=== PATIENT | male | born 1955 | race Caucasian/White ===

== ENCOUNTER 2017-03-31 08:30 | Outpatient (CLI) | payer MEDICARE ==
[2017-03-31] MEDS ORDERED: Iopamidol 370 76% 100 ML VIAL ONE (13:40)
== END 2017-03-31 08:31 | disposition home or self-care (01) ==
LOC: BICCT 08:30
PROVIDERS: ATTEND Internal Medicine Hematology & Oncology
DX: C64.2 Malignant neoplasm of left kidney, except renal pelvis (principal); C79.51 Secondary malignant neoplasm of bone; D75.1 Secondary polycythemia
CPT/HCPCS: 36415; 74177; 80053; 82248; 83615; 84100; 84550

== ENCOUNTER 2017-09-22 13:14 | Day surgery (SDC) | payer MEDICARE ==
[2017-09-22] MEDS ORDERED: Sodium Chloride 0.9% 10 ML ONE ×2 (13:31→13:32)
[2017-09-22] MEDS ORDERED: Zoledronic Acid 4 MG in Sodium Chloride 0.9% 100 ML IVPB SCH (14:00)
[2017-09-22 14:03] VITALS: BP 129/77; TEMP 99
== END 2017-09-22 14:58 | disposition home or self-care (01) ==
LOC: ONC/OP 13:14
PROVIDERS: ATTEND Internal Medicine Hematology & Oncology
DX: Z51.11 Encounter for antineoplastic chemotherapy (principal); C64.2 Malignant neoplasm of left kidney, except renal pelvis; C79.51 Secondary malignant neoplasm of bone; D75.1 Secondary polycythemia; E11.9 Type 2 diabetes mellitus without complications; Z79.899 Other long term (current) drug therapy
CPT/HCPCS: 80053; 96365; A4216; J3489; J7050

== ENCOUNTER 2017-10-17 08:05 | Outpatient (CLI) | payer MEDICARE ==
[2017-10-17] MEDS ORDERED: ISOVUE-370 76%-LOCM 1 ML ONE (13:30)
== END 2017-10-17 08:06 | disposition home or self-care (01) ==
LOC: BICCT 08:05
PROVIDERS: ATTEND Internal Medicine Hematology & Oncology
DX: C64.2 Malignant neoplasm of left kidney, except renal pelvis (principal); C79.51 Secondary malignant neoplasm of bone; Z90.5 Acquired absence of kidney
CPT/HCPCS: 71260; 74177

== ENCOUNTER → 2017-12-15 | Day surgery (SDC) | payer MEDICARE, OTHER ==
[~2017-12-15] MED LIST: Sodium Chloride 0.9% 20 ML ONE; Zoledronic Acid 4 MG in Sodium Chloride 0.9% 100 ML IVPB SCH
[2017-12-15 14:04] VITALS: BP 133/70; TEMP 98.4
== END ==
LOC: ONC/OP 13:12
PROVIDERS: ATTEND Internal Medicine Hematology & Oncology
DX: Z51.11 Encounter for antineoplastic chemotherapy (principal); C64.2 Malignant neoplasm of left kidney, except renal pelvis; C79.51 Secondary malignant neoplasm of bone; D75.1 Secondary polycythemia; F17.210 Nicotine dependence, cigarettes, uncomplicated; M19.90 Unspecified osteoarthritis, unspecified site; E11.9 Type 2 diabetes mellitus without complications; I10 Essential (primary) hypertension; Z79.891 Long term (current) use of opiate analgesic; Z79.899 Other long term (current) drug therapy; Z90.5 Acquired absence of kidney
CPT/HCPCS: 36415; 82565; 96365; J3489; J7050

== ENCOUNTER 2018-01-28 13:21 | Outpatient (CLI) | payer MEDICARE, OTHER ==
--- NOTE | 2018-01-28 19:55 | CT ---
CT OF CHEST AND ABDOMEN AND PELVIS PERFORMED WITH INTRAVENOUS CONTRAST ENHANCEMENT: 01/28/18 HISTORY: Left nephrectomy for renal cell carcinoma. Secondary malignant neoplasm of bone. COMPARISON: An 10/17/17 examination. The lungs show emphysematous change. There are no pulmonary nodules identified and no evidence of ple ural effusions. No infiltrates. There is no significant mediastinal or hilar lymphadenopathy. Minimal coronary artery calcifications are seen. Old right sided rib fractures are present. CT OF ABDOMEN PERFORMED WITH CONTRAST ENHANCEMENT: The liver and spleen appear unremarkable. The subtle hypodensity seen along the caudal surface of the pancreatic tail measuring approximately 9 x 34 mm in size is stable and is probably postoperative in nature. I do not believe it is truly of pancreatic origin. The gallbladder region appears unremarkab le. Right and left adrenal glands are normal. The exophytic hypodensity involving the right kidney measur es 2.5 cm compatible with a cyst. The left nephrectomy is again noted. No signs of any recurrent tumo r. No significant periaortic or mesenteric adenopathy. CT OF PELVIS PERFORMED WITH INTRAVENOUS CONTRAST ENHANCEMENT: The lytic focus involving the right iliac crest is again demonstrated. It is felt to be stable in crow earance. It measures approximately 3.8 cm in maximum dimension. Not felt to be a significant change. Review of osseous structures show no additional suspicious lytic lesions. IMPRESSION: 1. Stable overall exam. 2. Postop left nephrectomy change. 3. Stable appearance to the osteolytic lesion in the right iliac crest. 4. Stable hypodensity along the caudal surface of the pancreatic tail. POS: [facility]
== END 2018-01-28 13:22 | disposition home or self-care (01) ==
LOC: SCSCT 13:21
PROVIDERS: ATTEND Internal Medicine Hematology & Oncology
DX: C64.2 Malignant neoplasm of left kidney, except renal pelvis (principal); C79.51 Secondary malignant neoplasm of bone; K86.89 Other specified diseases of pancreas; Z90.5 Acquired absence of kidney
CPT/HCPCS: 71260; 74177; 82565

== ENCOUNTER 2018-03-09 10:22 | Day surgery (SDC) | payer MEDICARE, OTHER ==
[2018-03-09] MEDS ORDERED: Sodium Chloride 0.9% 20 ML ONE (10:28)
[2018-03-09] MEDS ORDERED: Zoledronic Acid 4 MG in Sodium Chloride 0.9% 100 ML IVPB SCH (11:45)
== END 2018-03-09 16:20 | disposition home or self-care (01) ==
LOC: ONC/OP 10:22
PROVIDERS: ATTEND Internal Medicine Hematology & Oncology
DX: Z51.11 Encounter for antineoplastic chemotherapy (principal); C64.2 Malignant neoplasm of left kidney, except renal pelvis; C79.51 Secondary malignant neoplasm of bone; D75.1 Secondary polycythemia; F17.210 Nicotine dependence, cigarettes, uncomplicated; Z79.899 Other long term (current) drug therapy; Z90.5 Acquired absence of kidney
CPT/HCPCS: 36415; 82565; 96365; J3489; J7050

== ENCOUNTER 2018-05-29 08:05 | Outpatient (CLI) | payer MEDICARE, OTHER ==
[2018-05-29 08:50] LABS: Estimated GFR-MDRD - POC Greater than 90
--- NOTE | 2018-05-29 10:41 | CT ---
CT CHEST AND ABDOMEN AND PELVIS WITH IV CONTRAST: Date: 05/29/18 Multiple axial tomograms obtained through the chest, abdomen, and pelvis with IV enhancement. Oral co ntrast was administered. Multiplanar reconstruction. INDICATION: History of left renal cancer. Secondary bone metastasis. Comparison made to CT chest, abdomen, and pelvis dated 01/28/18. FINDINGS: CT CHEST: The lung reyes remain clear. No infiltrate or effusion. No evidence of pulmonary mass or nodule. The re are chronic lung parenchymal changes which appear stable. Deformities of the posterior right 3rd, 4th, and 5th ribs again seen, consistent with old head fractures. There are nonspecific mediastinal lymph nodes again noted. There is a precarinal lymph node just ante rior to the trachea measuring approximately 1.0 x 2.0 cm in the axial plane, stable from prior exam. Other nonspecific subcentimeter mediastinal lymph nodes are unchanged. Degenerative changes in the spine. There are end plate deformities scattered through the thoracic spi ne which appear stable. No evidence of axillary adenopathy. IMPRESSION: Stable chest CT findings. No acute process. CT ABDOMEN AND PELVIS: The liver, spleen, and pancreas appear unremarkable. The oblong-shaped hypodensity along the caudal a spect of the tail of the pancreas has been previously described and is unchanged in appearance. This is best appreciated on the coronal view. Adrenal glands unremarkable. Left nephrectomy change again noted. Exophytic cyst from the posterior r ight kidney is unchanged. No adenopathy is seen in the renal bed on the left. Aorta shows mild athero sclerotic changes. No aneurysm. No periaortic adenopathy. Small bowel loops appear normal. Colon unremarkable. Images through the pelvis are unremarkable. There is mild diverticulosis of the sigmoid. The urinary bladder is partially distended and unremarkable. Prostate unremarkable. Review of the osseous structures again reveals a lytic lesion involving the right iliac wing. This is unchanged in size and appearance. No other lytic lesion identified. Lumbar spine shows prominent deg enerative change with degenerative disc changes and prominent bridging osteophytes. These findings ap pear stable. IMPRESSION: Stable CT abdomen and pelvis findings. The previously described low density along the caudal aspect o f the tail of the pancreas is stable. The lytic lesion in the right ilium is unchanged. No new findin g or lesion identified. POS: [facility]
[2018-05-29] MEDS ORDERED: ISOVUE-370 76%-LOCM 1 ML ONE (15:06)
== END 2018-05-29 08:06 | disposition home or self-care (01) ==
LOC: BICCT 08:05
PROVIDERS: ATTEND Internal Medicine Hematology & Oncology
DX: C64.2 Malignant neoplasm of left kidney, except renal pelvis (principal); C79.51 Secondary malignant neoplasm of bone; D75.1 Secondary polycythemia; K86.89 Other specified diseases of pancreas
CPT/HCPCS: 71260; 74177; 82565; Q9966

== ENCOUNTER 2018-06-08 10:19 | Day surgery (SDC) | payer MEDICARE ==
[~2018-06-08 10:19] MED LIST changes: -Sodium Chloride 0.9% 20 ML ONE
[2018-06-08 10:39] VITALS: BP 128/66; TEMP 98.1
== END 2018-06-08 11:08 | disposition home or self-care (01) ==
LOC: ONC/OP 10:19
PROVIDERS: ATTEND Internal Medicine Hematology & Oncology
DX: Z51.11 Encounter for antineoplastic chemotherapy (principal); C64.2 Malignant neoplasm of left kidney, except renal pelvis; C79.51 Secondary malignant neoplasm of bone; D75.1 Secondary polycythemia
CPT/HCPCS: 96365; J3489; J3490

== ENCOUNTER 2018-08-25 09:35 | Day surgery (SDC) | payer MEDICARE ==
[2018-08-25] MEDS ORDERED: Sodium Chloride 0.9% 20 ML ONE (09:57)
[2018-08-25 13:18] VITALS: BP 96/62; TEMP 98.5
== END 2018-08-25 13:21 | disposition home or self-care (01) ==
LOC: ONC/OP 09:35
PROVIDERS: ATTEND Internal Medicine Hematology & Oncology
DX: Z51.11 Encounter for antineoplastic chemotherapy (principal); C64.2 Malignant neoplasm of left kidney, except renal pelvis; C79.51 Secondary malignant neoplasm of bone; D75.1 Secondary polycythemia
CPT/HCPCS: 36415; 80053; 96365; J3489; J3490

== ENCOUNTER 2018-10-06 07:52 | Outpatient (CLI) | payer MEDICARE ==
--- NOTE | 2018-10-06 09:55 | CT ---
CT CHEST, ABDOMEN AND PELVIS WITH IV CONTRAST: 10/06/18 Multiple axial tomograms obtained with IV enhancement and with oral contrast. INDICATIONS: Left kidney cancer with secondary bone metastasis. COMPARISON: Comparison made to previous CT of chest, abdomen and pelvis 05/29/18. CT CHEST: The lung reyes remain clear. No evidence of parenchymal mass or nodule. Chronic lung parenchymal dorothea nges which have been previously described and remains stable. Nonspecific mediastinal lymph nodes are unchanged. Carinal lymph node measuring 2 cm was previously described. Thyroid is unremarkable. Nons pecific axillary lymph nodes are stable without evidence of adenopathy. Old healed right rib fractures have been previously described. No lytic or blastic osseous lesion lena ntified. Degenerative changes in the spine again noted. IMPRESSION: Stable chest CT without evidence of metastasis. CT ABDOMEN AND PELVIS: Liver, spleen and pancreas unremarkable. There is an oblong shaped hypodensity along the caudal aspe ct of the tail of the pancreas which has been previously described, breast appreciated on coronal jasmyn ges. This density is stable from prior study. Adrenal glands are normal. Left nephrectomy changes again noted. Exophytic cysts from the posterior r ight kidney is unchanged. Right kidney is unremarkable. Small bowel loops unremarkable. Colon unremar kable. Scattered diverticula. Urinary bladder mildly distended and unremarkable. Mild prostatic hypertrophy is stable. Aorta is tortuous with atherosclerotic changes and calcification. No aneurysm. Degenerative spine dorothea nges. The lytic lesion involving the right iliac wing is unchanged in appearance. IMPRESSION: Stable CT abdomen and pelvis. POS: [facility]
== END 2018-10-06 07:53 | disposition home or self-care (01) ==
LOC: BICCT 07:52
PROVIDERS: ATTEND Internal Medicine Hematology & Oncology
DX: C64.2 Malignant neoplasm of left kidney, except renal pelvis (principal); C79.51 Secondary malignant neoplasm of bone
CPT/HCPCS: 71260; 74177; 82565

== ENCOUNTER 2018-11-17 09:55 | Day surgery (SDC) | payer MEDICARE ==
[2018-11-17 10:52] VITALS: BP 135/69; TEMP 97.9
== END 2018-11-17 10:50 | disposition home or self-care (01) ==
LOC: ONC/OP 09:55
PROVIDERS: ATTEND Internal Medicine Hematology & Oncology
DX: Z51.11 Encounter for antineoplastic chemotherapy (principal); C64.2 Malignant neoplasm of left kidney, except renal pelvis; C79.51 Secondary malignant neoplasm of bone
CPT/HCPCS: 36415; 80053; 96365; J3489; J3490

== ENCOUNTER 2019-02-05 08:12 | Outpatient (CLI) | payer MEDICARE, OTHER ==
--- NOTE | 2019-02-05 10:17 | CT ---
CT OF CHEST AND ABDOMEN AND PELVIS PERFORMED WITH INTRAVNEOUS CONTRAST ENHANCEMENT: HISTORY: Left-sided renal cell carcinoma with secondary bone metastases. COMPARISON: An 10/06/2018 exam. The lungs demonstrate emphysematous-type changes with scarring. No significant axillary adenopathy. The mediastinal lymph nodes are stable. There is no significant hilar lymphadenopathy. There are some coronary calcifications noted. CT OF ABDOMEN PERFORMED WITH CONTRAST ENHANCEMENT: The liver, spleen, pancreas, and gallbladder regions appear unremarkable. The slightly oblong-shaped hypodensity seen adjacent to the pancreatic tail region is unchanged. It is best appreciated on coronal image 26, more difficult to visualize on the axial views. Right and left adrenal glands and right kidney are normal. The left kidney has been removed. No sig ns of any recurrent tumor. No significant periaortic or mesenteric adenopathy. CT OF PELVIS PERFORMED WITH CONTRAST ENHANCEMENT: Sigmoid diverticulosis is noted. There is no evidence of adenopathy, mass, or free fluid. Review of osseous structures shows a stable appearance to the lytic bone lesion involving the right i liac. No additional lesions are identified. Old healed right rib fractures have been previously owen cribed. In addition at this time, there is a subacute new fracture involving the right anterolateral 5th rib. This shows some callus formation. There is no lytic bony change associated with this and I would favor that this is related to a more recent trauma. There is also a right lateral 8th rib fr acture that is also new. There is a subtle lucent area within the rib noted on the previous exam. T his area of lucency is more subtle on a 05/29/2018 and in reviewing a 01/28/2018 exam a very subtle luce nt area was seen on that study. I cannot definitely exclude this as being a pathologic fracture rela eddie to a previous tiny lytic bony focus. In addition, the slightly lucent foci with sclerotic margin s of T5 and T7 are stable. These could potentially represent small hemangiomas. Some minimal loss o f vertebral body height at the superior end plate of T12 is noted. IMPRESSION: 1. Relatively stable overall exam. 2. Post left nephrectomy change. 3. Stable right iliac lytic bone lesion. 4. Development of 2 new subacute fractures involving the anterolateral right 5th and lateral right 8 th rib fracture. The area of the fracture of the 8th rib has always had a very subtle lytic focus wi thin the bone at this level and this could indicate that this is more of a pathologic fracture. I wo uld still favor it is probably related to a posttraumatic event given the other rib fracture. POS: [facility]
[2019-02-05] MEDS ORDERED: Iopamidol-370 76% 500 ML 1 ML ONE (10:46)
== END 2019-02-05 08:13 | disposition home or self-care (01) ==
LOC: BICCT 08:12
PROVIDERS: ATTEND Internal Medicine Hematology & Oncology
DX: C64.2 Malignant neoplasm of left kidney, except renal pelvis (principal); C79.51 Secondary malignant neoplasm of bone; M89.9 Disorder of bone, unspecified; M84.58XA Pathological fracture in neoplastic disease, other specified site, initial encounter for fracture; Z90.5 Acquired absence of kidney
CPT/HCPCS: 71260; 74177; Q9967

== ENCOUNTER 2019-02-09 09:57 | Day surgery (SDC) | payer MEDICARE, OTHER ==
[2019-02-09] MEDS ORDERED: Sodium Chloride 0.9% 20 ML ONE (10:04)
[2019-02-09 10:11] VITALS: BP 144/75; TEMP 97.9
== END 2019-02-09 11:02 | disposition home or self-care (01) ==
LOC: ONC/OP 09:57
PROVIDERS: ATTEND Internal Medicine Hematology & Oncology
DX: Z51.11 Encounter for antineoplastic chemotherapy (principal); C64.2 Malignant neoplasm of left kidney, except renal pelvis; C79.51 Secondary malignant neoplasm of bone; D75.1 Secondary polycythemia
CPT/HCPCS: 36415; 82565; 96365; J3489; J3490

== ENCOUNTER 2019-05-04 09:22 | Day surgery (SDC) | payer MEDICARE, OTHER ==
[2019-05-04 11:04] VITALS: BP 160/85; TEMP 99.4
== END 2019-05-04 11:07 | disposition home or self-care (01) ==
LOC: ONC/OP 09:22
PROVIDERS: ATTEND Internal Medicine Hematology & Oncology
DX: Z51.11 Encounter for antineoplastic chemotherapy (principal); C64.2 Malignant neoplasm of left kidney, except renal pelvis; C79.51 Secondary malignant neoplasm of bone; D75.1 Secondary polycythemia
CPT/HCPCS: 36415; 82565; 96365; J3489; J3490

== ENCOUNTER 2019-07-07 08:06 | Outpatient (CLI) | payer MEDICARE, OTHER ==
--- NOTE | 2019-07-07 09:32 | CT ---
CT BRAIN WITH AND WITHOUT CONTRAST: DATE: 07/07/2019 HISTORY: 64-year-old male with "left kidney cancer. Bone metastasis" TECHNIQUE: Precontrast scan of the brain. IV injection of iodinated contrast media. Postcontrast scan of brain. FINDINGS: There is no evidence of acute intra-axial or extra-axial hemorrhage. There is no midline shift or any other mass effect. There is no extra-axial fluid collection. There is no evidence of obstructive hydrocephalus. There is a very small, approximately 0.6 cm enhancing nodule in the right cerebellar h emisphere posteriorly There is no other abnormal intracranial enhancement or mass. Calvarium is intact. On the lowest 2 image slices, there is a heterogeneously strongly enhancing soft tissue density mass lateral to the atlas (C1) measuring at least 4 x 2 cm. The rest of this mass inferior to the is images is not included. There is a sharply demarcated osseous defect at the junction between the left lateral mass of C1 and left lamina. IMPRESSION: 1. Suspicious for soft tissue tumor mass at left upper neck and C-spine. Recommend further evaluation with CT of neck with contrast. 2. A small 6 mm enhancing lesion in right cerebellar hemisphere suspicious for brain metastasis. Cons ider further evaluation with MRI of brain with and without contrast.
--- NOTE | 2019-07-07 10:26 | CT ---
CT CHEST, ABDOMEN, AND PELVIS WITH ORAL AND IV CONTRAST AND MULTIPLANAR RECONSTRUCTION: Indications: Left renal cancer. Bone mets. Status post left nephrectomy. Comparison: CT chest, abdomen, and pelvis 02-05-19. FINDINGS: CT CHEST: Small right sided pleural effusion has increased in size since 02-05-19. Tiny left effusion is appare nt. Chronic lung parenchymal changes again noted and appear stable. Linear atelectasis and/or infiltrate in the right lung base along the fissure is slightly more prominent today. This may relate to some mi ld fluid within the fissure. There is also slight thickening of the fissure on the left anterior, pro bably representing some fluid. The mediastinum shows a nonspecific precarinal lymph node which is unc hanged measuring 3 cm in width in the axial plane. There are other nonspecific mediastinal nodes whic h are stable. Thoracic aorta shows mild atherosclerotic change without dissection or aneurysm. Proxim al pulmonary arteries are opacified with no evidence of proximal pulmonary embolus. There are two adjacent pathologic lymph nodes seen in the lower medial left chest which are subcural in location (behind the left crura medially). The larger of these measures 2.0 cm and an adjacent lob e just inferior measures 0.8 cm. Both of these show ring enhancement and appear pathologic. There wer e present previously, however, the larger node has slightly increased in size measuring 2.1 cm AP dim ension today where it previously measured approximately 1.7 cm. Review of the osseous structures of the thorax again shows fractures on the right. Right third and fo urth rib fracture deformities are again seen and do appear stable. There is a lytic component to this fourth rib lesion which is concerning for neoplastic involvement but it does appear stable. Healing fracture involving the lateral right fifth rib appears stable. There is a lytic lesion involving the peripheral right eighth rib which was described previously. Thi s is suspicious for a metastatic deposit. It is slightly more prominent today and there is a slightly increased pleural reaction at this site seen today. Thoracic vertebrae appear stable. Anterior wedging of the 12th thoracic vertebrae is stable. There ar e lesions in the posterior 5th thoracic vertebra and along the inferior endplate of the 7th thoracic vertebrae. These lesions show sclerotic borders and appear benign. They are stable from the prior exa m. No destructive lesion seen in the thoracic vertebrae. IMPRESSION: 1. Slight increase in the pleural effusions from prior exam. 2. Slightly enlarging pathologic node in the left lung base posterior to the crura. 3. The right rib lesions are again seen. The right 4th and 8th rib lesions are consistent with metast atic foci. The 8th rib lesion laterally appears slightly more prominent. CT ABDOMEN AND PELVIS: The liver, spleen, and pancreas are unremarkable. Low density along the inferior margin of the pancre as on coronal images has been previously noted and is stable and indeterminate. Cyst from the posterior right renal cortex is stable. Right kidney is otherwise unremarkable. Aorta is unremarkable and unchanged with atherosclerotic change again noted. Bowel loops unremarkable and unchanged in appearance. No intraabdominal or retroperitoneal adenopathy apparent. Osseous structures again show the lytic lesion involving the right ileum, which does not appear signi ficantly changed. IMPRESSION: 1. Stable CT abdomen and pelvis. POS: [facility]
[2019-07-07] MEDS ORDERED: Iopamidol 370 76% 100 ML VIAL ONE (11:13)
--- NOTE | 2019-07-07 17:27 | NM ---
NUCLEAR MEDICINE BONE SCAN: 07/07/19 HISTORY: Renal cancer and left nephrectomy. Nephrectomy performed in 2018. COMPARISON: CT examination done today. This examination is performed using 32 millicuries of 99m technetium MDP administered intravenously. This shows left nephrectomy change. Right sided rib lesions are identified. IN reviewing the previous CT examination, the patient has suki e lytic bone lesions but also evidence of healed fractures. The areas of increased uptake appear to b e related more to the callus formation. There is also some slight increased uptake along the anterior aspect of the left lower ribs in reviewing the previous CT study. There is a subtle sclerotic focus within the anterior 8th rib and 10th rib and this is felt to represent these areas of some slight inc reased uptake. In reviewing previous chest CTs of 02/05 and 10/06/18, the changes of the 10th rib are similar to the prior exam. There is slightly more sclerotic focus associated with the anterior aspect of the left 8th rib. Lytic bony changes of the right iliac bone are noted. There is no increased uptake associated with th is just focus of photopenia. A subtle focus of photopenia which does correspond to the CT abnormality . Arthritic changes of the hips, knees, and left ankle are present. IMPRESSION: 1. Post left nephrectomy change. 2. Areas of increased uptake within some of the right ribs. The increased uptake is probably rel ated to the bony callus changes rather than the lytic processes. There is also very subtle changes wi thin the left ribs as described above. There is also a lytic focus within the right iliac bone which does not show any increased uptake on bone scan. POS: [facility]
== END 2019-07-07 08:07 | disposition home or self-care (01) ==
LOC: CT 08:06
PROVIDERS: ATTEND Internal Medicine Hematology & Oncology
DX: C64.2 Malignant neoplasm of left kidney, except renal pelvis (principal); C79.51 Secondary malignant neoplasm of bone; D75.1 Secondary polycythemia; J90 Pleural effusion, not elsewhere classified; R59.0 Localized enlarged lymph nodes; G93.89 Other specified disorders of brain; Z90.5 Acquired absence of kidney
CPT/HCPCS: 70470; 71260; 74177; 78306; 82565; A9503; Q9967

== ENCOUNTER 2019-07-09 08:26 | Outpatient (CLI) | payer MEDICARE, OTHER ==
[2019-07-09 08:48] LABS: Estimated GFR-MDRD - POC Greater than 90
[2019-07-09] MEDS ORDERED: Iopamidol 370 76% 100 ML VIAL ONE (10:03)
[2019-07-09] MEDS ORDERED: Magnevist 469MG/ML 20 ML VIAL ONE (10:12)
--- NOTE | 2019-07-09 10:31 | MRI ---
MRI BRAIN WITH AND WITHOUT CONTRAST: DATE: 07/09/2019 HISTORY: 64-year-old male with malignant neoplasm of left kidney with metastatic bone disease. Lesion in right cerebellum found on CT. COMPARISON: No prior brain MRI TECHNIQUE: Multiplanar, multisequence MRI of the brain performed pre- and post-IV injection of gadolinium based contrast agent. FINDINGS: There is a tiny 0.5 x 0.7 cm rim-enhancing intra-axial lesion in the right cerebellar hemisphere. The re is a faint minimal halo of surrounding vasogenic edema. Blooming artifact on gradient echo sequence indicates associated minimal hemorrhage. There are no other enhancing intra-axial lesions. There is a large heterogeneously enhancing soft tissue mass in the left upper neck lateral to the upp er cervical spine as previously described on the CT report. Ventricles are normal in size and configuration. There are several punctate foci of remote hemorrhages, including left thalamus, right parietal deep cerebral white matter, and a few others. Tiny old lacunar infarction in left thalamus. Mild chronic ischemic white matter changes. Tiny old lacunar infarction left upper ellen. No restricted diffusion. No mass effect, midline shift, or extra-axial fluid collection. IMPRESSION: 1) tiny 0.7 cm intra-axial metastatic deposit in the right cerebellar hemisphere, solitary, with mini mal petechial hemorrhage. 2) large necrotic tumor mass in soft tissues of left upper neck. 3) tiny old lacunar infarctions in the left thalamus, left ellen, and right parietal deep white matter
--- NOTE | 2019-07-09 12:54 | CT ---
CT NECK WITH CONTRAST: Axial tomograms were obtained with multiplanar reconstruction. INDICATION: Malignant neoplasm of left kidney with secondary malignant neoplasm of bone. Recent abnormality on d iagnostic imaging. COMPARISON: Comparison is made to CT brain 07/07/2019 which revealed soft tissue mass upper left neck and C-spine. FINDINGS: Review of the parotid glands shows symmetric parotid glands bilaterally. There is a rim-enhancing ma ss along the posterior margin of the right parotid gland measuring 1.8 cm AP dimension most consisten t with a pathologic lymph node. The submandibular glands are unremarkable. The thyroid is mildly heterogeneous. A small calcified nodule is seen in the peripheral aspect of adilson th lobes. Nasopharynx unremarkable. Base of tongue and oropharynx unremarkable. Hypopharynx and larynx unremarkable. [employer] space, parapharyngeal space, and retropharyngeal space unremarkable. Carotid space shows atherosclerotic changes in both bulbs and proximal ICAs without evidence of signi ficant stenosis. Review of lymph node levels shows less evidence of cervical adenopathy. Nonspecific level I and leve l II lymph nodes are noted which are subcentimeter. No level III, IV, or V adenopathy. There is irregularly enhancing mass with low-density center suggesting central necrosis in the left n marko which involves the ring of C1 laterally on the left involving the lateral mass of C1 on the left. There is destructive change involving the lateral mass of C1 with destruction of the transverse pro cess and involvement of the foramen transversarium at C1. On postcontrast images, the soft tissue co mponent of this mass which exhibits peripheral enhancement and irregular linear central enhancement m easures up to 4.5 cm AP dimension x 3 cm width in the axial plane. Craniocaudal dimensions measured 3.8 cm in the coronal plane. The cervical vertebrae below C1 appear maintained with moderate degener ative changes noted. This mass does not involve the skull base. The paranasal sinuses and mastoids appear clear. IMPRESSION: 1. There is a destructive mass involving the lateral ring of C1 on the left with erosive changes inv olving the lateral ring of C1. The transverse process has been eroded and there is involvement of th e foramen transversarium. The vertebral artery is irregular within the middle portion of this mass b ut is patent and the distal vertebral artery at its junction with the basilar artery is identified. There is a large soft tissue component to this mass with irregular peripheral enhancement and some in ternal calcification. The dimensions are given above. 2. There is a ring-enhancing mass posterior to the right parotid gland most consistent with a pathol ogic lymph node. POS: [facility]
== END 2019-07-09 08:27 | disposition home or self-care (01) ==
LOC: CT 08:26
PROVIDERS: ATTEND Internal Medicine Hematology & Oncology
DX: R93.7 Abnormal findings on diagnostic imaging of other parts of musculoskeletal system (principal); G93.9 Disorder of brain, unspecified; C64.2 Malignant neoplasm of left kidney, except renal pelvis; C79.51 Secondary malignant neoplasm of bone; C76.0 Malignant neoplasm of head, face and neck; D75.1 Secondary polycythemia; K11.8 Other diseases of salivary glands; M48.9 Spondylopathy, unspecified; R23.3 Spontaneous ecchymoses; M85.88 Other specified disorders of bone density and structure, other site; Z86.73 Personal history of transient ischemic attack (TIA), and cerebral infarction without residual deficits
CPT/HCPCS: 70491; 70553; 82565; A9579; Q9967

== ENCOUNTER 2019-07-23 12:38 | Outpatient (CLI) | payer MEDICARE, OTHER ==
[2019-07-23] MEDS ORDERED: Magnevist 469MG/ML 20 ML VIAL ONE (13:01)
--- NOTE | 2019-07-23 14:51 | MRI ---
Exam: Brain MRI with and without contrast HISTORY: Secondary malignant neoplasm of bone in the brain. Renal cell carcinoma with metastases. Luc álvarez for radiosurgery. COMPARISON: 07/09/2019 FINDINGS: Gradient echo sequence: Stable hypointensity in the right temporal lobe and the left thalamus may rep resent remote hemorrhagic cavitary lacunar type infarcts. Hypointensity in the right cerebellar hemisphere corresponds to enhancing lesion may represent a hemorrhagic metastatic deposit. Calvarium: Appropriate T1 marrow signal intensity Cerebrum:With regard to the cerebrum, stable T2 and FLAIR white matter hyperintensities. No parenchym al mass, mass effect or midline shift. Age-appropriate atrophy. Gr-white matter differentiation is preserved. With regard to the right subarticular hemisphere, there is T2 and FLAIR hyperintensity. Ventricles: No evidence of hydrocephalus. Sinuses and mastoid air cells: Mild mucosal thickening in the paranasal sinuses Diffusion: Central arterial flow is maintained. Absent restricted diffusion. Postcontrast images:Rim-enhancing focus in the right cerebellar hemisphere measuring 0.6 cm. Addition al parenchymal enhancement is not appreciated. There is redemonstration of enhancing necrotic mass involving the posterior left neck at the C1 and C 2 level, incompletely evaluated. IMPRESSION: Solitary enhancing focus in the right cerebellar hemisphere.
== END 2019-07-23 12:39 | disposition home or self-care (01) ==
LOC: MRI 12:38
PROVIDERS: ATTEND Radiology Radiation Oncology
DX: C79.31 Secondary malignant neoplasm of brain (principal); C79.51 Secondary malignant neoplasm of bone
CPT/HCPCS: 70553

== ENCOUNTER 2019-08-19 13:11 | Day surgery (SDC) | payer MEDICARE ==
[~2019-08-19 13:11] MED LIST changes: +Nivolumab 240 MG in Sodium Chloride 0.9% 250 ML 136 ML IVPB SCH; +Sodium Chloride 0.9% 20 ML ONE; -Zoledronic Acid 4 MG in Sodium Chloride 0.9% 100 ML IVPB SCH
[2019-08-19 13:43] VITALS: BP 147/73
== END 2019-08-19 14:34 | disposition home or self-care (01) ==
LOC: ONC/OP 13:11
PROVIDERS: ATTEND Internal Medicine Hematology & Oncology
DX: Z51.12 Encounter for antineoplastic immunotherapy (principal); C64.2 Malignant neoplasm of left kidney, except renal pelvis; C79.51 Secondary malignant neoplasm of bone; D75.1 Secondary polycythemia
CPT/HCPCS: 96413

== ENCOUNTER 2019-09-16 13:33 | Day surgery (SDC) | payer MEDICARE ==
[~2019-09-16 13:33] MED LIST changes: -Sodium Chloride 0.9% 20 ML ONE
[2019-09-16] MEDS ORDERED: Sodium Chloride 0.9% 20 ML ONE (13:49)
== END 2019-09-16 14:38 | disposition home or self-care (01) ==
LOC: ONC/OP 13:33
PROVIDERS: ATTEND Internal Medicine Hematology & Oncology
DX: Z51.12 Encounter for antineoplastic immunotherapy (principal); C64.2 Malignant neoplasm of left kidney, except renal pelvis; C79.51 Secondary malignant neoplasm of bone; D75.1 Secondary polycythemia
CPT/HCPCS: 96413

== ENCOUNTER 2019-10-28 13:55 | Day surgery (SDC) | payer MEDICARE ==
[~2019-10-28 13:55] MED LIST changes: +Zoledronic Acid 4 MG in Sodium Chloride 0.9% 100 ML IVPB SCH
[2019-10-28 14:07] VITALS: BP 146/67; TEMP 98.7
== END 2019-10-28 15:23 | disposition home or self-care (01) ==
LOC: ONC/OP 13:55
PROVIDERS: ATTEND Internal Medicine Hematology & Oncology
DX: Z51.12 Encounter for antineoplastic immunotherapy (principal); C64.2 Malignant neoplasm of left kidney, except renal pelvis; C79.51 Secondary malignant neoplasm of bone; D75.1 Secondary polycythemia
CPT/HCPCS: 96367; 96413; J3489; J3490

== ENCOUNTER 2019-11-08 07:51 | Outpatient (CLI) | payer MEDICARE, OTHER ==
--- NOTE | 2019-11-08 09:17 | CT ---
CT chest with IV contrast CT abdomen with IV and oral contrast HISTORY: Renal cell carcinoma with metastatic disease. Restaging. COMPARISON: 07/07/2019. Findings right pleural fluid has not changed significantly. Sebaceous cyst within the posterior subcu taneous tissues at the upper midline chest is stable. Multiple old bilateral rib fractures are again demonstrated. Emphysematous changes are noted within each upper lobe. The precarinal lymph node measuring up to 2.2 cm greatest length is stable. Left retrocrural lymph no de immediately to the left of the aorta at the level of the celiac trunk has enlarged to 2.6 cm where as previously 2.2 cm. Numerous new nodules are present throughout each lung. None are calcified. The largest are at the lef t posterior lung base abutting the posterior dome of the left hemidiaphragm, 1.1 cm, a 0.7 cm subpleural nodule at the posterior aspect of the left lower lobe, and a 0.6 cm nodule within the midp ortion left upper lobe. The expansile, destructive mass involving the lateral aspect of the right fourth rib now measures up to 5.5 cm, previously 2.7 cm. The destructive lesion involving the posterolateral aspect of the right eighth rib now measures up to 5.4 cm, previously 2.4 cm. Destructive mass involving the right iliac wing is unchanged in appearance at 3.4 cm. Simple cyst at the posterior cortex of the right kidney measuring up to 3.5 cm stable. Tiny diverticulum of the third portion of the duodenum now more evident. Prominent calcification thro ughout the arterial structures. Mild chronic compression of the T12 vertebral body and prominent degenerative changes throughout the lumbar spine appears stable. The pelvis was not imaged. IMPRESSION : Marked worsening of metastatic disease, including multiple new lung nodules, enlargement of the right rib masses, and enlargement of the retrocrural lymph node. Other findings are stable.
--- NOTE | 2019-11-08 09:40 | CT ---
EXAM: CT NECK SOFT TISSUE POST CONTRAST: HISTORY: Metastatic renal cancer. Progression in symptoms of the left neck and cerebellum. Osseous metastases. COMPARISON: 07/09/2019. CORRELATION: Chest CT 11/08/2019. FINDINGS: Brain parenchyma: No pathologic enhancement of the visualized brain parenchyma. Sinuses: Adequate aeration of the visualized paranasal sinuses and mastoid air cells. Orbits: Visualized inferior aspect of the orbits are symmetric. Nasopharynx:Adequate aeration. No mucosal abnormality. Oral cavity:Aerodigestive tract is patent. No mucosal abnormality. Limited evaluation of the oral cav ity due to dental amalgam artifact. Midline fatty raphae of the tongue is preserved. Hypopharynx: No mucosal abnormality.. Larynx: No mucosal abnormality. Paraspinal muscles: Symmetric attenuation of the paraspinal muscles and symmetric attenuation of the sternocleidomastoid muscles.. Parotid and salivary glands: Symmetric attenuation of the parotid and submandibular glands. Thyroid gland: Unremarkable. Spine: Vertebral body height is maintained. No fracture. No significant central canal stenosis or sig nificant neural foraminal narrowing. Limited evaluation due to technique. Additional osseous structures: There is a soft tissue mass eroding the left aspect of the C1 and C2 v ertebral body with mild hyperenhancement. Mass measures 4.0 x 3.3 cm, previously measuring 4.5 x 3.1 cm. Currently, the enhancement is somewhat more confluent. Mass does encase the left vertebral ar lexus. There is a soft tissue mass with destruction of the right 4th rib. The soft tissue component measures 3.6 x 4.8 cm. There is an enlarged right axillary lymph node measuring 3.1 x 2.0 cm. Lymph nodes: Necrotic right posterior periparotid lymph node measuring 0.9 x 0.9 cm. Lung apices and upper mediastinum: Emphysematous changes in the visualized lung apices. Small right-s ided pleural effusion. IMPRESSION: 1. Redemonstration of a soft tissue mass in the left neck with erosion of the adjacent C1 and C2 vert ebral body. Mass encases the right vertebral artery without evidence of occlusion. 2. Redemonstration of a periparotid lymph node with necrosis (right neck). 3. Progression of metastases involving the right thorax as described above. Transcribed Date/Time: 11/08/2019 10:01 AM
--- NOTE | 2019-11-08 12:46 | NM ---
Exam: Nuclear medicine whole body bone scan HISTORY: Metastatic renal cancer. COMPARISON: 07/07/2019. TECHNIQUE: Patient administered 33 mCi of technetium 99m MDP intravenously. After appropriate delay, whole body imaging performed. FINDINGS: Expected distribution of the radiotracer. There is increased radiotracer activity involving the posterior left skull base/C1 region, compatible with known malignancy. There is uptake involving the anterior right fourth rib, sixth rib, and seventh rib. There is uptake involving anterior left fifth and eighth ribs. There is uptake involving the right T10 pedicle. There is uptake involving the right L5 pedicle. There is uptake involving the right greater trochanter. Uptake in the shoulders, knees, feet and ankle is felt to be due to degenerative change. IMPRESSION: Interval progression of osseous metastases. Uptake in the thoracic spine, lumbar spine, and right gre ater trochanter have become more evident since the previous exam. Uptake in the bony thorax appears to have slightly progressed as well. Transcribed Date/Time: 11/08/2019 1:16 PM
== END 2019-11-08 07:52 | disposition home or self-care (01) ==
LOC: CT 07:51
PROVIDERS: ATTEND Internal Medicine Hematology & Oncology
DX: C64.2 Malignant neoplasm of left kidney, except renal pelvis (principal); C79.51 Secondary malignant neoplasm of bone; R91.8 Other nonspecific abnormal finding of lung field; M47.816 Spondylosis without myelopathy or radiculopathy, lumbar region; M48.8X4 Other specified spondylopathies, thoracic region
CPT/HCPCS: 70491; 71260; 74160; 78306; A9503

== ENCOUNTER 2019-12-09 12:00 | Day surgery (SDC) | payer MEDICARE ==
[~2019-12-09 12:00] MED LIST changes: +IPILIMUMAB IV SCH; +NIVOLUMAB IVPB SCH; -Nivolumab 240 MG in Sodium Chloride 0.9% 250 ML 136 ML IVPB SCH; +SODIUM CHLORIDE 0.9% IV SCH; +SODIUM CHLORIDE 0.9% IVPB SCH; -Zoledronic Acid 4 MG in Sodium Chloride 0.9% 100 ML IVPB SCH
[2019-12-09] MEDS ORDERED: Sodium Chloride 0.9% 20 ML ONE (12:09)
[2019-12-09 12:33] VITALS: BP 134/69; TEMP 98.6
== END 2019-12-09 15:33 | disposition home or self-care (01) ==
LOC: ONC/OP 12:00
PROVIDERS: ATTEND Internal Medicine Hematology & Oncology
DX: Z51.12 Encounter for antineoplastic immunotherapy (principal); C64.2 Malignant neoplasm of left kidney, except renal pelvis; C79.51 Secondary malignant neoplasm of bone; D75.1 Secondary polycythemia
CPT/HCPCS: 80053; 82248; 83615; 84100; 84436; 84443; 84550; 96413; 96417

== ENCOUNTER 2019-12-28 13:06 | Outpatient (CLI) | payer MEDICARE, OTHER ==
--- NOTE | 2019-12-28 14:28 | MRI ---
Exam: Brain MRI with and without contrast HISTORY: Metastatic renal cancer. COMPARISON: 07/23/2019. CORRELATION: Soft tissue neck CT 11/08/2019. FINDINGS: Gradient echo sequence: Stable hemosiderin deposition. Hemosiderin is presumed to be due to remote he morrhagic cavitary lacunar infarcts. Stable hypointensity involving the right cerebellar hemisphere. Calvarium: Appropriate T1 marrow signal intensity Midline brain parenchyma: Unremarkable Cerebrum:Redemonstration of T2 and FLAIR hyperintensities which are predominantly due to chronic smal l vessel ischemic change. There is interval development of T2 and FLAIR hyperintensity with sulcal effacement involving the medial right frontal lobe. Ventricles: No evidence of hydrocephalus. Sinuses and mastoid air cells: Mild mucosal thickening of the paranasal sinuses. Partial opacificatio n of the left mastoid air cells. Diffusion: Central arterial flow is maintained. Absent restricted diffusion. Postcontrast images:There is evidence of a 0.5 x 0.7 cm enhancing focus involving the medial right fr ontal lobe. This enhancing focus was not present on the prior examination. There are no additional areas of supratentorial metastases. Stable enhancing lesion involving the right cerebellar hemisphere with peripheral enhancement. Lesion measures 0.6 cm. IMPRESSION: 1. Stable metastatic deposit in the right cerebellar hemisphere with associated hemorrhage. 2. Interval development of an enhancing focus in the medial right frontal lobe. There is associated e brooke and sulcal effacement without midline shift. 3. Redemonstration of a necrotic soft tissue mass along the left aspect of the C2 level, incompletely evaluated. Refer to soft tissue neck CT report for further detail. Transcribed Date/Time: 12/28/2019 2:59 PM
== END 2019-12-28 13:07 | disposition home or self-care (01) ==
LOC: TBSIIMAG 13:06
PROVIDERS: ATTEND Radiology Radiation Oncology
DX: C79.31 Secondary malignant neoplasm of brain (principal); C64.9 Malignant neoplasm of unspecified kidney, except renal pelvis; I61.9 Nontraumatic intracerebral hemorrhage, unspecified; R60.0 Localized edema; Z92.3 Personal history of irradiation
CPT/HCPCS: 70553

== ENCOUNTER 2019-12-30 13:26 | Day surgery (SDC) | payer MEDICARE ==
[2019-12-30 13:53] VITALS: BP 137/93
[2019-12-30] MEDS ORDERED: Sodium Chloride 0.9% 20 ML ONE (14:18)
== END 2019-12-30 16:04 | disposition home or self-care (01) ==
LOC: ONC/OP 13:26
PROVIDERS: ATTEND Internal Medicine Hematology & Oncology
DX: Z51.12 Encounter for antineoplastic immunotherapy (principal); C64.2 Malignant neoplasm of left kidney, except renal pelvis; C79.51 Secondary malignant neoplasm of bone; D75.1 Secondary polycythemia
CPT/HCPCS: 96413; 96417

== ENCOUNTER 2020-01-18 13:56 | Day surgery (SDC) | payer MEDICARE ==
[~2020-01-18 13:56] MED LIST changes: +Zoledronic Acid 4 MG in Sodium Chloride 0.9% 100 ML IVPB SCH
[2020-01-18] MEDS ORDERED: Sodium Chloride 0.9% 10 ML ONE (15:15)
== END 2020-01-18 15:28 | disposition home or self-care (01) ==
LOC: ONC/OP 13:56
PROVIDERS: ATTEND Internal Medicine Hematology & Oncology
DX: Z51.12 Encounter for antineoplastic immunotherapy (principal); C64.2 Malignant neoplasm of left kidney, except renal pelvis; C79.51 Secondary malignant neoplasm of bone; D75.1 Secondary polycythemia
CPT/HCPCS: 36415; 80053; 82248; 83615; 84100; 84436; 84443; 84550; 99211; G0463; J3489; J3490

== ENCOUNTER 2020-01-19 11:02 | Day surgery (SDC) | payer MEDICARE ==
[~2020-01-19 11:02] MED LIST changes: -IPILIMUMAB IV SCH; +IPILIMUMAB IVPB SCH; -SODIUM CHLORIDE 0.9% IV SCH
[2020-01-19 11:32] VITALS: BP 152/68; TEMP 98
== END 2020-01-19 15:28 | disposition home or self-care (01) ==
LOC: ONC/OP 11:02
PROVIDERS: ATTEND Internal Medicine Hematology & Oncology
DX: Z51.12 Encounter for antineoplastic immunotherapy (principal); C64.2 Malignant neoplasm of left kidney, except renal pelvis; C79.51 Secondary malignant neoplasm of bone; D75.1 Secondary polycythemia
CPT/HCPCS: 96367; 96413; 96417; J3489; J3490

== ENCOUNTER 2020-02-04 12:26 | Day surgery (SDC) | payer MEDICARE ==
--- NOTE | 2020-02-04 14:22 | RAD ---
Chest AP view INDICATION: History of thoracentesis COMPARISON: CT of the thorax with contrast dated November 02, 2019 FINDINGS: Lungs: There is persistent opacity in the right lung base suspicious for atelectasis. Left lung is c lear. Cardiac silhouette: The cardiomediastinal silhouette appears within normal limits. Pulmonary vasculature: Normal Pleural spaces: There is a [id number] right-sided pleural effusion remaining. No pneumothorax is evident. Upper abdomen: No abnormality seen. Osseous structures: Scrambled bone Additional findings: None. IMPRESSION: Reported interval thoracentesis. [id number] right-sided pleural effusion remains. Persistent o pacity right lung base suspicious for atelectasis is stable. No pneumothorax is evident.
[2020-02-04 15:04] LABS: Fluid, pH - Pleural Fld Greater than 7.50 (7.60 - 7.66)
[2020-02-04 15:23] LABS: RBC Count-Automated (BF) 9319 /cu.mm; WBC/Nucleated-Auto (BF) 417 uL
[2020-02-04 15:45] LABS: Body Fluid Source Pleural Fluid; Clarity Cloudy/Turbid (Clear); Tube # EDTA
[2020-02-04 15:47] LABS: BF Segmented Neutrophils 4 %; Cell Count Non Hematic 65 %; Eosinophils 2 %; Lymphocytes 28 %
[2020-02-04 15:58] LABS: Fluid, Triglycerides 34 mg/dL (Not Available); Pleural Fluid, Amylase Less than 30 U/L (Not Available); Pleural Fluid, Glucose 102 mg/dL; Pleural Fluid, LDH 211 U/L (Not Available); Pleural Fluid, Protein 4.4 g/dL
--- NOTE | 2020-02-06 06:04 | OP ---
DATE OF PROCEDURE: 02/04/2020 PROCEDURE PERFORMED: Thoracentesis. INDICATION: Pleural effusion. DESCRIPTION OF PROCEDURE: After informed consent, the right posterior thorax was cleaned with chlorhexidine. 1% lidocaine was infiltrated into the 9th intercostal space in the midscapular line 20 mL of slightly sanguinous fluid was removed. Thereafter, using an 8-Azeri catheter, a total of 2 L of fluid was removed without any difficulty. The patient did cough during the procedure. X- ray pending. Pleural effusion was sent for appropriate studies including cytology. The patient tolerated the procedure well. Job ID: [id number] [facility]
--- NOTE | 2020-02-07 08:45 | DIS ---
DATE OF ADMISSION: 02/04/2020 DATE OF DISCHARGE: 02/04/2020 BRIEF DISCHARGE NOTE: Postprocedure, sats are 95%, pulse 80, respiratory rate 18, blood pressure 130/80. X-ray is pending. If he remains stable, he will be discharged home. Follow up with his primary care and oncologist. Job ID: [id number]
--- NOTE | 2020-02-08 13:00 | HP ---
HISTORY OF PRESENT ILLNESS: The patient is a 64-year-old gentleman with a rather complicated medical history, who is referred here for shortness of breath and abnormal CT chest, which showed a large right pleural effusion, atelectatic change in the right lung, pulmonary nodules, destructive right chest wall mass, bone lesion in the iliac crest. He is a smoker up to a pack a day for most of his life. He says he has not cut back smoking substantially. He has significant dyspnea on exertion without associated fever or chills. He had a Coronavirus test done, which is negative. In 2018, he was diagnosed to have renal cancer and received extensive treatment from Dr. De Leon. Over the course of several years, he has then progressed unfortunately to have metastatic disease including to the iliac crest as well as the lung now with what appears to be mets and the pleural effusion along with the right third rib fractures. He is clearly short of breath. PAST MEDICAL HISTORY: Otherwise, metastatic renal cancer, has received multiple treatments as outlined by his oncologist. The only medicine right now he is getting is Zometa. Previous medication for his chemo has long since been discontinued. PAST SURGICAL HISTORY: Right renal nephrectomy, right shoulder repair, left knee. MEDICATIONS: Includes: 1. . 2. Coreg 12.5 twice a day. 3. Hydrocodone p.r.n. 4. Morphine sulfate 300 p.r.n. PHYSICAL EXAMINATION: VITAL SIGNS: His sats are 91% on room air, pulse 80, respiratory rate 18, blood pressure 130/80. CHEST: Decreased breath sounds in entire right lung. Left lung minimal rhonchi. CARDIAC: Normal S1 and S2. No gallop. ABDOMEN: Soft. NEUROLOGIC: Awake, alert, and responsive. 2+ edema. LABORATORY DATA: CT was reviewed which is as noted shows multiple masses, particularly the large right pleural effusion with some compressive atelectatic changes. ASSESSMENT: Metastatic renal cancer, chronic pain syndrome. Pulmonary villa, a therapeutic thoracentesis is going to be performed. Discharge to home thereafter. Follow up with his oncologist. I am concerned that if the effusion going to reoccur, he may, at that time, require an indwelling pleural catheter for comfort care. Job ID: [id number]
== END 2020-02-04 14:38 | disposition home or self-care (01) ==
LOC: SDC 12:26
PROVIDERS: ATTEND Internal Medicine Pulmonary Disease
PROC: 0BJQ3ZZ Inspection of Pleura, Percutaneous Approach (ICD-10-PCS; principal; 2020-02-04)
DX: J90 Pleural effusion, not elsewhere classified (principal); C64.9 Malignant neoplasm of unspecified kidney, except renal pelvis; F17.210 Nicotine dependence, cigarettes, uncomplicated; G89.4 Chronic pain syndrome; Z79.899 Other long term (current) drug therapy
CPT/HCPCS: 32554; 71045; 82150; 82945; 83615; 83986; 84157; 84478; 85060; 87070; 87116; 87205; 87206; 88112; 88305; 89051; J1642

== ENCOUNTER 2020-02-23 11:29 | Outpatient (CLI) | payer MEDICARE, OTHER ==
--- NOTE | 2020-02-23 11:51 | RAD ---
EXAM: Two views chest PROVIDED CLINICAL HISTORY: Dyspnea COMPARISON: 02/04/2020 FINDINGS: There has been interval increase in size of right pleural effusion with moderately large right pleura l effusion occupying just greater than 50% of the volume of the right hemithorax. This excludes the right cardiac border. Left lung is clear. Destructive lesions involving the right lateral fourth and eighth ribs are again present and better visualized on CT thorax on 02/01/2020. There are remote fractures involving the right posterolateral third and fifth ribs and anterolateral right fifth rib. Vascular calcifications are seen in tortuous thoracic aorta. IMPRESSION: 1. Enlarging right pleural effusion. 2. Destructive rib lesions involving the right lateral fourth and eighth ribs.
== END 2020-02-23 11:30 | disposition home or self-care (01) ==
LOC: BICRAD 11:29
PROVIDERS: ATTEND Internal Medicine Pulmonary Disease
DX: R06.00 Dyspnea, unspecified (principal); J90 Pleural effusion, not elsewhere classified; M89.9 Disorder of bone, unspecified
CPT/HCPCS: 71046

== ENCOUNTER 2020-02-26 14:07 | Emergency (ER) | payer MEDICARE, OTHER ==
[2020-02-26 14:44] LABS: #Basophils 0.1 thou/uL (0.0-0.2); #Eosinphils 0.3 thou/uL (0.0-0.7); #Monocytes 0.6 thou/uL (0.11-0.59); #Neutrophils 8.5 thou/uL (1.40-6.50); %Basophils 0.5 % (0.0-1.0); %Eosinophils 3.3 % (0.0-10.0); %Lymphocytes 9.9 % (21.0-51.0); %Monocytes 5.4 % (0.0-10.0); %Neutrophils 80.8 % (42.0-75.0); Hemoglobin 16.2 g/dL (14.0-18.0); Mean Corpuscular HGB CONC 30.9 g/dL (32.0-36.0); Mean Corpuscular Hemoglobin 28.2 pg (27.0-31.0); Mean Corpuscular Volume 91.1 fL (78.0-98.0); Mean Platelet Volume 8.3 fL (7.4-10.4); Platelet Count 194 thou/uL (130-400); RBC Distribution Width 16.9 % (11.5-14.5); Red Blood Cell (RBC) Count 5.74 mill/uL (4.70-6.10); White Blood Cell (WBC) Count 10.5 thou/uL (4.8-10.8)
[2020-02-26 15:03] LABS: Anion Gap 10 mmol/L (10-20); BUN (Urea Nitrogen) 11 mg/dL (8.4-25.7); Calc. Creatinine Clearance 0 mL/min (70-130); Calcium 8.6 mg/dL (7.8-10.44); Carbon Dioxide 32 mmol/L (23-31); Chloride 98 mmol/L (98-107); Glucose 122 mg/dL (80-115); Potassium 3.9 mmol/L (3.5-5.1); Sodium 136 mmol/L (136-145)
--- NOTE | 2020-02-26 15:07 | RAD ---
Right hip 2 views HISTORY: Right hip pain. Injury. Osseous metastases. FINDINGS: Mild osteoarthritic changes of the hip. Extensive fragmentation and displacement of irregul ar ossific fragments (measuring up to 1.3 cm) from the apex of the greater trochanter. Distraction by approximately 2.8 cm. No fracture planes across the femoral neck are evident. At the base of the greater trochanter is an ill-defined 5.8 cm oval lucency with gradual transition. Most recent anatomic imaging including this area was a CT pelvis from 07/07/2019, when no lesions were evident at this location. Chronic cortical remodeling of the right iliac wing is similar to the prior CT exam. IMPRESSION : Fragmented ossific avulsion from the greater trochanter. Probable underlying lytic metastatic lesion. No femoral neck fracture is now evident, although the suspected metastatic lesion would pose a danger for a pathologic fracture in the near future.
--- NOTE | 2020-02-26 15:09 | RAD ---
AP pelvis one view HISTORY: Right hip pain. Injury. Metastatic disease. FINDINGS: Sacral alae and pelvic rings are intact. There are degenerative changes lower lumbar spine and hips. Cortical remodeling of the right iliac crest is similar to prior CT exam. Fragmented ossific avulsion from the right greater trochanter is present. Occupying the greater troch anter and base, an ill-defined lucency has the appearance of a lytic metastatic focus. No fracture planes are apparent across the femoral neck, although the presumed metastatic lesion woul d pose danger for pathologic fracture in the near future.
--- NOTE | 2020-02-27 05:36 | CON ---
DATE OF CONSULTATION: HISTORY OF PRESENT ILLNESS: Mr. Yeung is a 64-year-old male who presented with right hip pain. He felt that since he stood up and felt a pop in his right hip, he is able to minimally weightbear. The patient is currently being seen by Dr. Yaneli De Leon and followed by Dr. Almonte. Has history of metastatic lesions and history of renal cell carcinoma. The patient had previous metastases to right iliac wing which is radiated. The patient has appointment this coming up week with Dr. De Leon to discuss further treatment. He is currently taking chronic pain medications. PAST MEDICAL HISTORY: Renal cell carcinoma which was in remission until recently, hypertension, pulmonary edema. PAST SURGICAL HISTORY: Nephrectomy, tonsillectomy, shoulder surgery, knee surgery , not specified. ALLERGIES: NO KNOWN DRUG ALLERGIES. MEDICATIONS: Please see the med list for full details. SOCIAL HISTORY: The patient presents with his brother. Currently not working. Currently undergoing chemotherapy. REVIEW OF SYSTEMS: Negative except for the right hip pain, nonspecific localized pain throughout his extremities. No chest pain, shortness of breath. The patient's pain is rated 10. PHYSICAL EXAMINATION: VITAL SIGNS: 98.6, 147/84, respiratory rate 18, pulse 69, O2 saturation 93% on room air. GENERAL: Alert, oriented male, in no acute distress. EXTREMITIES: Right lower extremity, tenderness in his greater trochanter. No pain with internal and external rotation of his right hip with some pain, but no instability. The patient has no effusions. Neurovascularly intact distally and he had brisk capillary refill. Able to plantar flex and dorsiflex. Sensation intact. IMAGING STUDIES: The patient's right hip films show a metastatic lesion to his greater trochanter region with a pathologic fracture. There appears to be no complete erosion of the patient's calcar or into his femoral neck, his basicervical region, although the mass is encroaching upon this region. There is also notable iliac wing metastases which is sclerosed IMPRESSION: 1. History of renal cell carcinoma. 2. Pathologic fracture, greater trochanter. PLAN: I called and discussed with Dr. Cristina, Dr. De Leon's partner, plan of care for the patient. Also discussed with Radiology encroachment of the pathologic fracture on the neck or calcar. I feel the patient is safe to go home with a walker, touchdown weightbearing on his right side until he follows with Dr. De Leon on this Friday. I feel he would likely need a course of radiation and potentially prophylactic nailing. I discussed with him that given his disease process, his proclivity to bleed during the case leading to increased mortality, I would attempt the radiation dose and follow the patient with serial radiographs to ensure that he did not have erosion. He would need cephalomedullary nail to protect for any potential future pathologic fracture. I discussed he still has a risk of fracturing the hip even with precautions. He understood this risks and desired to be discharged. He was given a prescription for walker. We will await his conversation with Dr. De Leon. Job ID: [id number] [facility]
== END 2020-02-26 18:12 | disposition home or self-care (01) ==
LOC: ERS 14:07
DX: S72.111A Displaced fracture of greater trochanter of right femur, initial encounter for closed fracture (principal); C79.51 Secondary malignant neoplasm of bone; I10 Essential (primary) hypertension; X50.1XXA Overexertion from prolonged static or awkward postures, initial encounter
CPT/HCPCS: 72170; 80048; 85025

== ENCOUNTER 2020-02-29 13:26 | Outpatient (CLI) | payer MEDICARE ==
[2020-02-29 14:55] LABS: Anion Gap 14 mmol/L (10-20); BUN (Urea Nitrogen) 18 mg/dL (8.4-25.7); Calc. Creatinine Clearance 0 mL/min (70-130); Calcium 8.8 mg/dL (7.8-10.44); Carbon Dioxide 29 mmol/L (23-31); Chloride 101 mmol/L (98-107); Glucose 88 mg/dL (80-115); Sodium 140 mmol/L (136-145)
[2020-02-29 15:09] LABS: Hemoglobin 15.2 g/dL (14.0-18.0); Mean Corpuscular HGB CONC 30.6 G/DL (32.0-36.0); Mean Corpuscular Hemoglobin 27.6 PG (27.0-33.0); Mean Corpuscular Volume 90.4 fl (80.0-100.0); Mean Platelet Volume 10.4 fl (7.4-10.4); Platelet Count 185 10x3/uL (130-400); RBC Distribution Width 17.2 % (11.5-14.5); White Blood Cell (WBC) Count 7.9 10x3/uL (4.5-11.0)
[2020-03-01 02:23] LABS: SARS-CoV-2 MS2 Positive; SARS-CoV-2 N Gene Negative; SARS-CoV-2 S Gene Negative; SARS-CoV-2 by NAA Not Detected (NotDetected); SARS-CoV-2 orf1ab Negative
== END 2020-02-29 13:27 | disposition home or self-care (01) ==
LOC: LABBT 13:26
PROVIDERS: ATTEND Thoracic Surgery (Cardiothoracic Vascular Surgery)
DX: Z01.812 Encounter for preprocedural laboratory examination (principal); Z20.822 Contact with and (suspected) exposure to COVID-19; J90 Pleural effusion, not elsewhere classified
CPT/HCPCS: 80048; 85027; U0003; 87635

== ENCOUNTER 2020-03-02 05:56 | Day surgery (SDC) | payer MEDICARE, OTHER ==
[2020-03-01 11:17] VITALS: BMI 27.0
[2020-03-02] MEDS ORDERED: Bupivacaine PF 0.5% 30 ML VIAL ONE (06:44)
[2020-03-02] MEDS ORDERED: EPINEPHrine 1 MG/ML AMP ONE (06:44)
[2020-03-02] MEDS ORDERED: Midazolam HCl 2 mg/2 ml Vial ONE (06:55)
[2020-03-02] MEDS ORDERED: Fentanyl 100 MCG/2 ML VIAL ONE (06:55)
[2020-03-02] MEDS ORDERED: Ketamine 50 MG/ML (10ML VIAL) ONE (07:19)
--- NOTE | 2020-03-02 09:54 | OP ---
DATE OF PROCEDURE: 03/02/2020 PREOPERATIVE DIAGNOSIS: Recurrent right pleural effusion in a patient with metastatic renal cancer. PROCEDURE: Right PleurX catheter. ANESTHESIA: IV sedation with local. DESCRIPTION OF PROCEDURE: After prepping and draping, the patient had 1% lidocaine used to infiltrate the skin over the proposed puncture site and yellow fluid was aspirated. A small incision was made. Angiocath inserted and a wire placed. Following this, a tunnel was marked and infiltrated and an exit site marked and opened, and the drain catheter was brought through the tunnel. The peel-away sheath was then inserted. Catheter placed through this ensuring that it did not kink as it exited the chest. 2300 mL of yellow fluid was removed. Small skin incision at the entry site was closed. The patient tolerated the procedure well. Job ID: [id number]
[2020-03-02] MEDS ORDERED: PROPOFOL 200 MG/20 ML VIAL ONE (10:22)
== END 2020-03-02 08:50 | disposition home or self-care (01) ==
LOC: CCL 05:56
PROVIDERS: ATTEND Thoracic Surgery (Cardiothoracic Vascular Surgery)
PROC: 0WH933Z Insertion of Infusion Device into Right Pleural Cavity, Percutaneous Approach (ICD-10-PCS; principal; 2020-03-02)
DX: C64.9 Malignant neoplasm of unspecified kidney, except renal pelvis (principal); J91.0 Malignant pleural effusion; C79.51 Secondary malignant neoplasm of bone; C79.89 Secondary malignant neoplasm of other specified sites; F17.210 Nicotine dependence, cigarettes, uncomplicated; Z79.891 Long term (current) use of opiate analgesic; Z79.899 Other long term (current) drug therapy; Z90.5 Acquired absence of kidney
CPT/HCPCS: C1729; J0171; J0690; J2250; J2704; J3010; S0020

== ENCOUNTER 2020-03-21 12:20 | Outpatient (CLI) | payer MEDICARE, OTHER ==
--- NOTE | 2020-03-21 12:47 | RAD ---
2 views of the chest: 03/21/2020 COMPARISON: 02/23/2020 HISTORY: Shortness of breath/dyspnea FINDINGS: The heart and mediastinal contours are stable. The prior examination demonstrated a prominent right-sided pleural effusion which is no longer visual ized. There is a new right-sided chest tube inferiorly/posteriorly. There is minimal residual pleural thick ening within the inferior right lung base/costophrenic angle which may signify pleural thickening or minimal residual fluid. Multiple old right-sided rib fractures are noted. There is no pneumothorax . No focal consolidation or alveolar edema. No left pneumothorax. IMPRESSION: Numerous old right rib fractures. Interval near complete resolution of right pleural effu aries with new right chest tube in place.
== END 2020-03-21 12:21 | disposition home or self-care (01) ==
LOC: BICRAD 12:20
PROVIDERS: ATTEND Internal Medicine Pulmonary Disease
DX: R06.00 Dyspnea, unspecified (principal); Z97.8 Presence of other specified devices
CPT/HCPCS: 71046